=== PATIENT | female | born 1970 | race Caucasian/White ===

== ENCOUNTER 2017-08-29 18:20 | Inpatient (IN) ==
[2017-08-29] MEDS ORDERED: Ondansetron 4 MG/2 ML VIAL IVP ONE (18:23)
[2017-08-29] MEDS ORDERED: Ketorolac 15 MG/ML VIAL IVP ONE (18:23)
--- NOTE | 2017-08-29 18:28 | Emergency Department Note ---
Disposition Clinical Impression: Acute cholecystitis Disposition: Admitted As Inpatient Condition: Fair Forms: ED Satisfaction Letter, Work/School Release Time of Disposition: 19:21 Abdominal Pain HPI - General Chief Complaint: ED General Medical Stated Complaint: gallbladder Time Seen by Provider: 08/29/17 18:23 Source: patient Mode of arrival: wheelchair Limitations: no limitations Nursing Notes Reviewed: Yes Vital Signs Reviewed: Yes - History of Present Illness HPI Narrative: Patient sent from the radiology department after having an abnormal outpatient gallbladder ultrasound. She reports right upper quadrant pain, nausea, vomiting. The chest was ordered from the urgent care as an outpatient Pt Subjective Complaint: abdominal pain Onset (ago): day(s) Consistency: intermittent Location: RUQ Pain Severity: severe Pain Scale: 6 Quality: aching Radiation: RUQ Improves with: nothing Worsens with: eating Associated symptoms: Reports: nausea Treatments prior to arrival: antacids, other - Related Data Home Medications Medication Instructions Recorded Confirmed Loratadine [Claritin] 10 mg PO DAILY 08/29/17 08/29/17 Mag Hydrox/Al Hydrox/Simeth 15 ml PO Q6HR 08/29/17 08/29/17 [Maalox] Multivit with Calcium,Iron,Min 1 tab PO DAILY 08/29/17 08/29/17 [One Daily Women's] [place]-3S/Dha/Epa/Fish Oil [Fish 1 cap PO DAILY 08/29/17 08/29/17 Oil 1,000 mg Softgel] Previous Rx's Medication Instructions Recorded Dicyclomine [Bentyl] 10 mg PO QID PRN #45 capsule 08/29/17 Ondansetron ODT [Zofran ODT] 4 mg SL Q8HR PRN #21 tab.rapdis 08/29/17 Allergies Allergy/AdvReac Type Severity Reaction Status Date / Time codeine AdvReac Hallucinati Verified 08/29/17 13:02 ng All systems ED: reviewed and negative except as stated. Constitutional: Reports: as per HPI Eyes: Reports: as per HPI ENT ED: Reports: as per HPI Cardiovascular: Reports: as per HPI Respiratory: Reports: as per HPI Gastrointestinal: Reports: abdominal pain, nausea Genitourinary: Reports: as per HPI Musculoskeletal: Reports: as per HPI Integumentary: Reports: as per HPI Neurological: Reports: as per HPI Psychiatric: Reports: as per HPI Endocrine: Reports: as per HPI Hematological/Lymphatic: Reports: as per HPI Allergic/Immunologic: Reports: as per HPI Abdominal Pain PMH - Past Medical History Medical history: Reports: no medical history Female Surgical History: Reports: hysterectomy - Social History Smoking status: Never smoker Alcohol use: Reports: none Drug use: Reports: none Physical Exam - General Limitations: no limitations General appearance: alert, in no apparent distress, anxious - Head Head exam: atraumatic - Eye Eye exam: Present: normal appearance - ENT ENT exam: normal exam - Neck Neck exam: Present: normal inspection, full ROM - Chest Chest inspection: Present: normal inspection, symmetric chest wall rise - Respiratory Respiratory exam: Present: normal lung sounds bilaterally - Cardiovascular Cardiovascular exam: Present: normal rhythm, bradycardia, normal heart sounds - Abdominal Exam Abdominal exam: Present: soft, tenderness (Right upper quadrant) - Rectal Exam Rectal exam: Present: deferred - Extremities Exam Extremities exam: Present: normal inspection - Neurological Exam Neurological exam: Present: alert, oriented X3, CN II-XII intact - Psychiatric Psychiatric exam: Present: anxious - Skin Skin exam: Present: warm, dry, intact Course Course Narrative: Patient presents with right upper quadrant abdominal pain. She had an outpatient gallbladder ultrasound dated earlier today the transcribed report of which I have reviewed. Call placed to the surgeon post acute care nurse practitioner. Preoperative labs ordered - Consultations Consultation #1: Case d/w Dr. Garg, surgery post acute care nurse practitioner Vital Signs Temperature 99 F 08/29/17 18:23 Pulse Rate 78 08/29/17 18:23 Respiratory Rate 18 08/29/17 18:23 Blood Pressure 128/81 08/29/17 18:23 O2 Sat by Pulse Oximetry 98 08/29/17 18:23 Temperature 99 F 08/29/17 18:23 Pulse Rate 78 08/29/17 18:23 Respiratory Rate 18 08/29/17 18:23 Blood Pressure 128/81 08/29/17 18:23 O2 Sat by Pulse Oximetry 98 08/29/17 18:23 Oxygen Delivery Oxygen Delivery Room Air Abdominal Pain - Medical Records Medical records reviewed: Yes I reviewed the patient's medical records. - Lab Data Lab results reviewed: Yes I reviewed the patient's lab results. Result diagrams: 08/29/17 18:36 08/29/17 18:36 Lab Results 06/28/18 06/28/18 06/28/18 Range/Units 18:36 18:36 18:36 WBC 7.4 (4.3-11.1) K/mcL RBC 5.33 H (3.82-4.97) M/mcL Hgb 16.6 H (11.5-15.4) g/dL Hct 46.9 H (35.3-44.9) % MCV 88.0 (83.0-100.0) fL MCH 31.1 (28.0-33.3) pg MCHC 35.4 (31.6-35.5) g/dL RDW 11.9 (11.5-14.5) % Plt Count 295 (140-400) K/mcL MPV 9.4 (9.4-12.4) fL Immature Gran % 0.1 (0-4) % Seg Neutrophils % 88.0 % Lymphocytes % 8.6 % Monocytes % 3.0 % Eosinophils % 0.0 % Basophils % 0.3 % Neutrophils # 6.5 (1.6-8.9) K/mcL Lymphocytes # 0.6 (0.6-4.6) K/mcL Monocytes # 0.2 (0.0-1.3) K/mcL Eosinophils # 0.0 (0.0-0.6) K/mcL Basophils # 0.0 (0.0-0.2) K/mcL PT 12.2 H (9.4-12.1) Seconds INR 1.1 Sodium 138 (136-145) mEq/L Potassium 3.6 (3.5-5.1) mEq/L Chloride 99 (98-107) mEq/L Carbon Dioxide 24 (23-29) mEq/L BUN 11 (6-20) mg/dL Creatinine 0.82 (0.60-1.20) mg/dL Est GFR ( Amer) > 60 (> 60) Est GFR (Non-Af Amer) > 60 (> 60) BUN/Creatinine Ratio 13 (6-26) Glucose 144 H (70-105) mg/dL Calculated Osmolality 288 (280-300) Calcium 10.3 (8.6-10.3) mg/dL Total Bilirubin 8.4 H (0.3-1.0) mg/dL AST 498 H (13-39) Units/L ALT > 500 H (7-52) Units/L Alkaline Phosphatase 312 H (34-104) Units/L Serum Total Protein 8.6 (6.4-8.9) g/dL Albumin 5.0 (3.5-5.7) g/dL Globulin 3.6 H (2.4-3.5) g/dL Albumin/Globulin Ratio 1.4 (1.1-2.2) Amylase 44 (29-103) Units/L - Radiology Data Radiology results reviewed: Yes I reviewed the patient's radiology results. - EKG Data EKG attestation: Yes I reviewed and interpreted this EKG. EKG results narrative: Sinus bradycardia rate 55 left ventricular hypertrophy. 147 QRS 90 QT/QTc 464/ 454
[2017-08-29 18:51] LABS: Basophils % 0.3 %; Hematocrit 46.9 % (35.3-44.9); Hemoglobin 16.6 g/dL (11.5-15.4); Immature Granulocytes % 0.1 % (0-4); Lymphocytes # 0.6 K/mcL (0.6-4.6); Lymphocytes % 8.6 %; Mean Corpuscular HGB Conc 35.4 g/dL (31.6-35.5); Mean Corpuscular Hemoglobin 31.1 pg (28.0-33.3); Mean Platelet Volume 9.4 fL (9.4-12.4); Monocytes # 0.2 K/mcL (0.0-1.3); Neutrophils # 6.5 K/mcL (1.6-8.9); Platelet Count 295 K/mcL (140-400); Red Blood Count 5.33 M/mcL (3.82-4.97); Red Cell Distribution Width 11.9 % (11.5-14.5)
[2017-08-29 18:59] LABS: INR 1.1; Prothrombin Time 12.2 Seconds (9.4-12.1)
[2017-08-29 19:17] LABS: Alanine Aminotransferase > 500 Units/L (7-52); Albumin/Globulin Ratio 1.4 (1.1-2.2); Alkaline Phosphatase 312 Units/L (34-104); Amylase 44 Units/L (29-103); Aspartate Amino Transferase 498 Units/L (13-39); BUN/Creatinine Ratio 13 (6-26); Bilirubin,Total 8.4 mg/dL (0.3-1.0); Blood Urea Nitrogen 11 mg/dL (6-20); Calcium 10.3 mg/dL (8.6-10.3); Carbon Dioxide 24 mEq/L (23-29); Chloride 99 mEq/L (98-107); Globulin 3.6 g/dL (2.4-3.5); Glucose 144 mg/dL (70-105); Osmolality,Calculated 288 (280-300); Potassium 3.6 mEq/L (3.5-5.1); Sodium 138 mEq/L (136-145); Total Protein 8.6 g/dL (6.4-8.9); eGFR For African Americans > 60 (> 60); eGFR For Non-African Americans > 60 (> 60)
--- NOTE | 2017-08-29 19:29 | General Surg History&Physical ---
Date of Encounter: 08/29/17 Time of Encounter: 19:26 Assessment and Plan (1) Choledocholithiasis with acute cholecystitis Current Visit: Yes Status: Acute 46F with choledocholithiasis; non toxic NPO IVF abx pain control admit to step down unit GI consult for ERCP in AM will plan for surgery after a few days of antibiotics; The assessment and plan as outlined above was discussed with the patient and/or family members who expressed understanding and agreement. All questions were answered. History of Present Illness Chief complaint: abdominal pain HPI: Ms. Herrera is a 46 year old female otherwise healthy who presents with 3 weeks of RUQl and epigastric pain with radiation to her shoulders. The pain got progressively worse this week when she developed associated nausea and vomiting. No reports of fevers. She does report PO intolerance as she states she is barely able to tolerate water. Due to the severity of her pain and worsening symptoms, she presents to the ED for further evaluation. Her WBC is wnl, her Tbili is elevated to 8.4 as well as elevation of AST/ALT; US which was reviewed and interpreted by me in combination with radiology reads demonstrates gallbladder wall thickening, pericholecystic fluid, gallstones and a dilated common bile duct. Past Med Surg Social Fam HX - Past Medical History Medical history: no medical history - Past Surgical History Surgical History: hysterectomy - Social History Smoking Status: Never smoker Smokeless Tobacco Status: No Alcohol use: none Drug use: none - Additional Family History Additional family history: non contributory Medications and Allergies Dicyclomine [Bentyl] 10 mg PO QID PRN #45 capsule 08/29/17 [Rx] Loratadine [Claritin] 10 mg PO DAILY 08/29/17 [History] Mag Hydrox/Al Hydrox/Simeth [Maalox] 15 ml PO Q6HR 08/29/17 [History] Multivit with Calcium,Iron,Min [One Daily Women's] 1 tab PO DAILY 08/29/17 [ History] [place]-3S/Dha/Epa/Fish Oil [Fish Oil 1,000 mg Softgel] 1 cap PO DAILY 08/29/17 [ History] Ondansetron ODT [Zofran ODT] 4 mg SL Q8HR PRN #21 tab.rapdis 08/29/17 [Rx] 3 Allergy/AdvReac Type Severity Reaction Status Date / Time codeine AdvReac Hallucinati Verified 08/29/17 13:02 ng Review of Systems All systems PM: The remainder of the systems were reviewed and are negative General Surgery Exam Initial Vital Signs Temp Pulse Resp BP Pulse Ox 99 F 78 18 128/81 98 08/29/17 18:23 08/29/17 18:23 08/29/17 18:23 08/29/17 18:23 08/29/17 18:23 - General physical appearance other (mild distress) - Eyes other (scleral icterus) - ENT normal mucosa, normocephalic - Neck no lymphadectomy - Respiratory normal expansion, normal respiratory effort - Cardiovascular Cardiovascular exam: Present: RRR - Abdomen Abdomen general surgery: Present: soft, tender Abdominal Tenderness: Present: epigastic, RUQ ((+)vazquez's sign) - Integumentary Integumentary general surgery: Present: warm and dry, other (jaundice) - Neurologic Present: CN 2-12 grossly intact - Musculoskeletal Present: normal posture - Psychiatric Psychiatric general surgery: Present: A&Ox3 Results - Labs 08/29/17 18:36 08/29/17 18:36 Abnormal lab results RBC 5.33 M/mcL (3.82-4.97) H 08/29/17 18:36 Hgb 16.6 g/dL (11.5-15.4) H 08/29/17 18:36 Hct 46.9 % (35.3-44.9) H 08/29/17 18:36 PT 12.2 Seconds (9.4-12.1) H 08/29/17 18:36 Glucose 144 mg/dL (70-105) H 08/29/17 18:36 Total Bilirubin 8.4 mg/dL (0.3-1.0) H 08/29/17 18:36 AST 498 Units/L (13-39) H 08/29/17 18:36 ALT > 500 Units/L (7-52) H 08/29/17 18:36 Alkaline Phosphatase 312 Units/L (34-104) H 08/29/17 18:36 Globulin 3.6 g/dL (2.4-3.5) H 08/29/17 18:36 Diabetes panel 08/29/17 08/29/17 08/29/17 Range/Units 18:36 18:36 18:36 WBC 7.4 (4.3-11.1) K/mcL RBC 5.33 H (3.82-4.97) M/mcL Hgb 16.6 H (11.5-15.4) g/dL Hct 46.9 H (35.3-44.9) % MCV 88.0 (83.0-100.0) fL MCH 31.1 (28.0-33.3) pg MCHC 35.4 (31.6-35.5) g/dL RDW 11.9 (11.5-14.5) % Plt Count 295 (140-400) K/mcL MPV 9.4 (9.4-12.4) fL Immature Gran % 0.1 (0-4) % Seg Neutrophils % 88.0 % Lymphocytes % 8.6 % Monocytes % 3.0 % Eosinophils % 0.0 % Basophils % 0.3 % Neutrophils # 6.5 (1.6-8.9) K/mcL Lymphocytes # 0.6 (0.6-4.6) K/mcL Monocytes # 0.2 (0.0-1.3) K/mcL Eosinophils # 0.0 (0.0-0.6) K/mcL Basophils # 0.0 (0.0-0.2) K/mcL PT 12.2 H (9.4-12.1) Seconds INR 1.1 Sodium 138 (136-145) mEq/L Potassium 3.6 (3.5-5.1) mEq/L Chloride 99 (98-107) mEq/L Carbon Dioxide 24 (23-29) mEq/L BUN 11 (6-20) mg/dL Creatinine 0.82 (0.60-1.20) mg/dL Est GFR ( Amer) > 60 (> 60) Est GFR (Non-Af Amer) > 60 (> 60) BUN/Creatinine Ratio 13 (6-26) Glucose 144 H (70-105) mg/dL Calculated Osmolality 288 (280-300) Calcium 10.3 (8.6-10.3) mg/dL Total Bilirubin 8.4 H (0.3-1.0) mg/dL AST 498 H (13-39) Units/L ALT > 500 H (7-52) Units/L Alkaline Phosphatase 312 H (34-104) Units/L Serum Total Protein 8.6 (6.4-8.9) g/dL Albumin 5.0 (3.5-5.7) g/dL Globulin 3.6 H (2.4-3.5) g/dL Albumin/Globulin Ratio 1.4 (1.1-2.2) Amylase 44 (29-103) Units/L Calcium panel 08/29/17 Range/Units 18:36 Calcium 10.3 (8.6-10.3) mg/dL Albumin 5.0 (3.5-5.7) g/dL Pituitary panel 08/29/17 Range/Units 18:36 Sodium 138 (136-145) mEq/L Potassium 3.6 (3.5-5.1) mEq/L Chloride 99 (98-107) mEq/L Carbon Dioxide 24 (23-29) mEq/L BUN 11 (6-20) mg/dL Creatinine 0.82 (0.60-1.20) mg/dL Glucose 144 H (70-105) mg/dL Calcium 10.3 (8.6-10.3) mg/dL Adrenal panel 08/29/17 Range/Units 18:36 Sodium 138 (136-145) mEq/L Potassium 3.6 (3.5-5.1) mEq/L Chloride 99 (98-107) mEq/L Carbon Dioxide 24 (23-29) mEq/L BUN 11 (6-20) mg/dL Creatinine 0.82 (0.60-1.20) mg/dL Glucose 144 H (70-105) mg/dL Calcium 10.3 (8.6-10.3) mg/dL Total Bilirubin 8.4 H (0.3-1.0) mg/dL AST 498 H (13-39) Units/L ALT > 500 H (7-52) Units/L Alkaline Phosphatase 312 H (34-104) Units/L Albumin 5.0 (3.5-5.7) g/dL All other labs normal. - Imaging US - abdomen: report reviewed, image reviewed
[2017-08-29] MEDS ORDERED: Ondansetron ODT 4 MG TAB.RAPDIS SL PRN (19:36)
[2017-08-29] MEDS ORDERED: OXYCODONE Oral CONC 10 MG/0.5 ML ORAL.SYG SL PRN (19:36)
[2017-08-29] MEDS ORDERED: Ketorolac 15 MG/ML VIAL IM PRN (19:40)
[2017-08-29] MEDS: 0.9 % Sodium Chloride 1,000 ML IVC SCH ×2 (20:23→21:21)
[2017-08-29] MEDS: D5% in 0.9% NACL 1,000 ML IVC SCH (22:27)
[2017-08-29] MEDS: Piperacillin/Tazobactam 3.375 GM in 0.9 % Sodium Chloride Mini Bag 100 ML IVPB SCH (23:24)
[2017-08-29] MEDS: Ondansetron 4 MG/2 ML VIAL IVP PRN (23:25)
[2017-08-30] MEDS: Ketorolac 15 MG/ML VIAL IVP PRN ×4 (01:23→21:04)
[2017-08-30] MEDS: *HR* Enoxaparin 40 MG/0.4 ML SYRINGE SQ SCH (04:27)
[2017-08-30] MEDS: D5% in 0.9% NACL 1,000 ML IVC SCH ×2 (04:27→05:43)
[2017-08-30 05:42] LABS: Basophils % 0.1 %; Eosinophils % 0.4 %; Immature Granulocytes % 0.3 % (0-4); Lymphocytes # 1.2 K/mcL (0.6-4.6); Lymphocytes % 16.7 %; Mean Corpuscular HGB Conc 35.1 g/dL (31.6-35.5); Mean Corpuscular Hemoglobin 31.4 pg (28.0-33.3); Mean Corpuscular Volume 89.4 fL (83.0-100.0); Mean Platelet Volume 9.7 fL (9.4-12.4); Monocytes # 0.9 K/mcL (0.0-1.3); Neutrophils # 5.2 K/mcL (1.6-8.9); Platelet Count 210 K/mcL (140-400); Red Blood Count 4.36 M/mcL (3.82-4.97); Red Cell Distribution Width 11.9 % (11.5-14.5); Segmented Neutrophils % 70.5 %
[2017-08-30 05:44] LABS: Hemoglobin 13.7 g/dL (11.5-15.4)
[2017-08-30] MEDS: Ondansetron 4 MG/2 ML VIAL IVP PRN ×3 (05:44→21:05)
[2017-08-30] MEDS: Piperacillin/Tazobactam 3.375 GM in 0.9 % Sodium Chloride Mini Bag 100 ML IVPB SCH ×2 (07:29→17:13)
--- NOTE | 2017-08-30 09:19 | General Surgery Progress Note ---
Date of Encounter: 08/30/17 Time of Encounter: 09:18 - Assessment and Plan (1) Choledocholithiasis with acute cholecystitis Current Visit: Yes Status: Acute 46F with choledocholithiasis, acute cholecystitis; plan for ERCP today if unable to get done to day, will transfer to OSH cont IV abx keep NPO may need TPN Subjective Patient reports: no new complaints, still having pain, afebrile Objective Vital Signs - Last 8 Hours Temp Pulse Resp BP Pulse Ox 08/30/17 07:30 99 F 65 16 152/76 98 08/30/17 03:45 98.6 F 49 16 143/81 98 Intake and Output 08/29/17 08/30/17 08/30/17 23:59 07:59 15:59 Intake Total 1999 1100 / 1100 Output Total 0 / 0 0 / 0 Balance 1999 1100 / 1100 Intake: IV Fluids 1999 1100 / 1100 0.9 % Sodium Chloride 1,000 ML 1999 @ 999 mls/hr IVC .Q1H1M [facility] Rx# :[id number] D5% And 0.9% Nacl 1000 Ml 1,000 1000 / 1000 ML @ 125 mls/hr IVC .Q8H [facility] Rx#:[id number] Zosyn 3.375 GM In 0.9 % Sodium 100 / 100 Chloride (Mini-Bag +) 100 ML @ 25 mls/hr IVPB Q8HR [facility] Rx#: [id number] Oral 0 / 0 0 / 0 Output: Urine 0 / 0 0 / 0 Other: Weight 68 kg Blood Glucose* 145 - General physical appearance no distress, jaundice - Eyes other (scleral icterus) - Respiratory normal expansion, normal respiratory effort - Cardiovascular Cardiovascular exam: Present: RRR - Abdomen Abdomen: Present: soft, tender Abdominal Tenderness: epigastic, RUQ - Neurologic CN 2-12 grossly intact - Psychiatric oriented to time, oriented to person, oriented to place - Labs 08/30/17 05:12 08/29/17 18:36 - VTE Documentation of Mechanical Device: Intermittent pneumatic compression device Consult Discharge Plan - Plan Referrals: Luis Horn DO [Primary Care Provider] -
--- NOTE | 2017-08-30 11:20 | Gastroenterology Consult Note ---
Date of Encounter: 08/30/17 Time of Encounter: 09:15 - Assessment and plan (1) Choledocholithiasis with acute cholecystitis Current Visit: Yes Status: Acute Assessment and plan: Pt presents with nausea, abdominal pain, elevated LFTs and jaundice. US shows stone in the CBD will proceed with ERCP today. Risks and benefits including risk of infection, pancreatitis and bleeding explained and pt and verbalize understanding. - Time Spent With Patient Total time spent is greater than 50% in coordination of care (as documented) at patient's floor/unit and/or counseling patient: GI History of Present Illness - Data of Consult Patient: new to practice Consult date: 08/30/17 Requesting Physician: Adolfo Garg MD - Consult Narrative Reason for consult: choledocholithiasis History of present illness: Ms. Herrera is a 46 year old female otherwise healthy who presents with 3 weeks of RUQ and epigastric pain with radiation to her shoulders. Pain has been much worse the past week and she has been unable to keep liquids down due to nausea and vomiting. She reports low grade fever. Her WBC is wnl, her Tbili is elevated to 8.4, AST 98, ALT >500. US gallbladder showed Distended gallbladder with numerous shadowing stones and sludge present as well as trace pericholecystic fluid. The gallbladder wall is also thickened an sonographic Link sign is reportedly positive. Stone noted at the level of the gallbladder neck and the common bile duct is dilated at 1.3 cm. Past Med Surg Social Fam HX - Past Medical History Medical history: no medical history Psychiatric history: no psych history - Past Surgical History Surgical History: hysterectomy - Social History Smoking Status: Never smoker Smokeless Tobacco Status: No Alcohol use: none Drug use: none Review of Systems: GI: as per PAUMA GENERAL: low grade fever and chills EYES: yellow discoloration ENT: denies pain with swallowing or difficulty swallowing CARDIO: denies chest pain, palpitations RESP: No Shortness of breath with exertion : denies change in color of urine NEURO: denies any weakness HEME: Denies any bruising MS: denies joint pain, joint swelling or back pain. DERM: denies rash or itching PSYCH: Denies history of anxiety or depression - Constitutional Vitals: Temp Pulse Resp BP Pulse Ox 99 F 65 16 152/76 98 08/30/17 07:30 08/30/17 07:30 08/30/17 07:30 08/30/17 07:30 08/30/17 07:30 Exam: CONSTITUTIONAL:~alert, no acute distress.~HEAD:~normocephalic.~EYES:~jaundice.~ NECK:~no obvious swelling.~HEART:~regular rate and rhythm, no murmurs.~LUNGS:~ bilateral good air entry.~ABDOMEN:~non distended, soft, tender, no masses palpable, no organomegaly.~RECTAL EXAM:~Deferred.~EXTREMITIES:~no clubbing, cyanosis or edema.~SKIN:~no stigmata of chronic liver disease.~NEUROLOGIC:~no obvious focal defect.~~~~ Results - Labs CBC & Chem 7: 08/30/17 05:12 08/29/17 18:36 Labs: Last Result Calcium 10.3 mg/dL (8.6-10.3) 08/29/17 18:36 Entire Visit Hgb 13.7 g/dL (11.5-15.4) D 08/30/17 05:12 Hct 39.0 % (35.3-44.9) 08/30/17 05:12 PT 12.2 Seconds (9.4-12.1) H 08/29/17 18:36 Total Bilirubin 8.4 mg/dL (0.3-1.0) H 08/29/17 18:36 AST 498 Units/L (13-39) H 08/29/17 18:36 ALT > 500 Units/L (7-52) H 08/29/17 18:36 Amylase 44 Units/L (29-103) 08/29/17 18:36 - ABG ABG results: PT/INR, D-dimer PT 12.2 Seconds (9.4-12.1) H 08/29/17 18:36 Consult Discharge Plan - Plan Referrals: Luis Horn DO [Primary Care Provider] -
--- NOTE | 2017-08-30 13:39 | Anesthesia Evaluation PreOp ---
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: Denies Any Significant HX Other Medical History: Denies Any Significant HX Anesthesia History: No Prior Anesthetic Complications, Past Anesthesia ( hysterectomy) Alcohol Use: none Drug use: none Medications and Allergies Dicyclomine [Bentyl] 10 mg PO QID PRN #45 capsule 08/29/17 [Rx] Loratadine [Claritin] 10 mg PO DAILY 08/29/17 [History] Mag Hydrox/Al Hydrox/Simeth [Maalox] 15 ml PO Q6HR 08/29/17 [History] Multivit with Calcium,Iron,Min [One Daily Women's] 1 tab PO DAILY 08/29/17 [ History] [place]-3S/Dha/Epa/Fish Oil [Fish Oil 1,000 mg Softgel] 1 cap PO DAILY 08/29/17 [ History] Ondansetron ODT [Zofran ODT] 4 mg SL Q8HR PRN #21 tab.rapdis 08/29/17 [Rx] 3 Allergy/AdvReac Type Severity Reaction Status Date / Time codeine AdvReac Hallucinati Verified 08/29/17 13:02 ng - Meds/Allergy Pre-op Review Medications Reviewed: Yes Allergies Reviewed: Yes Beta Blockers on Current Med List: No Anesthesia Results - Labs 08/30/17 05:12 08/29/17 18:36 Anesthesia Exam Vital Signs/O2 Sat/Glucose, Most Recent Temp Pulse Resp BP Pulse Ox 98.6 F 50 16 143/72 100 08/30/17 11:42 08/30/17 11:42 08/30/17 11:42 08/30/17 11:42 08/30/17 11:42 Blood Glucose* 125 Height: 5'2''/1.57m Weight: 149 lbs/68 kg NPO (# of Hours): 8 Pain Scale: 2 (abdomen) Pain Scale Used: Numeric (1 - 10) - HEENT Pupil (Motor): EOMI Mallampati: II Teeth: Normal Oral Opening: Greater than 3 - DRAGLINE OPERATOR HELPER LOC: Oriented DRAGLINE OPERATOR HELPER Motor: Normal RUE, Normal LUE, Normal RLE, Normal LLE, Normal Face DRAGLINE OPERATOR HELPER Sensory: Normal: RUE, LUE, RLE, LLE, Face - Cardiac Rhythm: Regular Murmur: None - Pulmonary Breath Sounds: bilateral Clear Respiratory Effort: Symmetrical Anesthesia Assess/Plan ASA Score: 2 Modified [place]ble Scale for Level of Consciousness: Cooperative, oriented, and tranquil Anesthetic Plan: General Monitoring Plan: Standard Monitors Recovery Plan: PACU
[2017-08-30] MEDS ORDERED: *HR* Succinylcholine 200 MG/10 ML VIAL IVP ONE (13:53)
[2017-08-30] MEDS ORDERED: *HR* Propofol 200 MG/20 ML VIAL IVP ONE (13:53)
[2017-08-30] MEDS ORDERED: Lidocaine -MPF 4% 5 ML AMPUL ONE (13:53)
[2017-08-30] MEDS ORDERED: Lidocaine -MPF 2% 2 ML VIAL ONE (13:53)
[2017-08-30] MEDS ORDERED: Ondansetron 4 MG/2 ML VIAL ONE (13:53)
[2017-08-30] MEDS ORDERED: Dexamethasone 4 MG/ML VIAL ONE (13:53)
[2017-08-30] MEDS ORDERED: *HR* FentaNYL (PF) 100 MCG/2 ML VIAL ONE (13:53)
[2017-08-30] MEDS ORDERED: Ondansetron 4 MG/2 ML VIAL IVP ONE (14:55)
[2017-08-30] MEDS ORDERED: *HR* FentaNYL (PF) 100 MCG/2 ML VIAL IVP PRN (14:55)
[2017-08-30] MEDS ORDERED: *HR* Promethazine 25 MG/ML VIAL IVP PRN (14:55)
[2017-08-30] MEDS ORDERED: Indomethacin 50 MG SUPP.RECT RC ONE (15:26)
--- NOTE | 2017-08-30 15:49 | Electrocardiograph Report ---
[address] [address] Test Date: 2017-08-29 Pat Name: Salima Herrera Department: 103 Room: 3A45 Gender: F Charge Out Clerk: MSC : [id number] Requested By: Russell Ferrell Order Number: [id number] Reading MD: Masood Wylie Measurements Intervals [place] Rate: 55 P: 56 KS: 147 QRS: 58 QRSD: 90 T: 34 QT: 464 QTc: 454 Interpretive Statements SINUS BRADYCARDIA MINIMAL VOLTAGE CRITERIA FOR LVH, CONSIDER NORMAL VARIANT Electronically Signed On 08-30-2017 15:48:03 EDT by Masood Wylie
--- NOTE | 2017-08-30 16:15 | Anesthesia Evaluation Post Op ---
Date of Encounter: 08/30/17 Time of Encounter: 16:09 - Vital Signs Vital Signs: vss - Lungs Lungs: Clear Ascult./Percussion - Airway Airway: Non-obstructed - Cardiovascular Baseline Rhythm - Mental Status Mental Status: Alert & Oriented, Answers Appropriately - Pain Pain Scale used: Camilo (Faces) - Nausea Vomiting Nausea Vomiting: Not Present - Hydration Hydration: Ice chips - Discharge PostOp Status: Transfer Patient to floor
[2017-08-31] MEDS: Piperacillin/Tazobactam 3.375 GM in 0.9 % Sodium Chloride Mini Bag 100 ML IVPB SCH ×3 (00:34→16:49)
[2017-08-31] MEDS: D5% in 0.9% NACL 1,000 ML IVC SCH ×3 (04:01→12:20)
[2017-08-31 04:45] LABS: Basophils % 0.2 %; Eosinophils % 0.4 %; Hematocrit 34.9 % (35.3-44.9); Immature Granulocytes % 0.2 % (0-4); Lymphocytes # 1.3 K/mcL (0.6-4.6); Lymphocytes % 25.5 %; Mean Corpuscular HGB Conc 34.7 g/dL (31.6-35.5); Mean Corpuscular Hemoglobin 31.3 pg (28.0-33.3); Mean Corpuscular Volume 90.2 fL (83.0-100.0); Mean Platelet Volume 9.9 fL (9.4-12.4); Monocytes # 0.5 K/mcL (0.0-1.3); Monocytes % 10.5 %; Neutrophils # 3.2 K/mcL (1.6-8.9); Platelet Count 165 K/mcL (140-400); Red Blood Count 3.87 M/mcL (3.82-4.97); Segmented Neutrophils % 63.2 %
[2017-08-31 04:48] LABS: Hemoglobin 12.1 g/dL (11.5-15.4)
[2017-08-31 04:57] LABS: Alanine Aminotransferase 391 Units/L (7-52); Albumin 3.3 g/dL (3.5-5.7); Albumin/Globulin Ratio 1.4 (1.1-2.2); Alkaline Phosphatase 202 Units/L (34-104); Amylase 33 Units/L (29-103); Aspartate Amino Transferase 117 Units/L (13-39); BUN/Creatinine Ratio 12 (6-26); Bilirubin,Direct 4.6 mg/dL (0.0-0.2); Bilirubin,Indirect 1.5 mg/dL (0.0-1.2); Bilirubin,Total 6.1 mg/dL (0.3-1.0); Blood Urea Nitrogen 8 mg/dL (6-20); Calcium 8.6 mg/dL (8.6-10.3); Carbon Dioxide 23 mEq/L (23-29); Chloride 110 mEq/L (98-107); Globulin 2.4 g/dL (2.4-3.5); Glucose 151 mg/dL (70-105); Lipase 44 Units/L (11-82); Osmolality,Calculated 289 (280-300); Potassium 3.4 mEq/L (3.5-5.1); Sodium 139 mEq/L (136-145); Total Protein 5.7 g/dL (6.4-8.9); eGFR For African Americans > 60 (> 60); eGFR For Non-African Americans > 60 (> 60)
[2017-08-31] MEDS: *HR* Enoxaparin 40 MG/0.4 ML SYRINGE SQ SCH (07:51)
--- NOTE | 2017-08-31 15:06 | General Surgery Progress Note ---
Date of Encounter: 08/31/17 Time of Encounter: 15:04 - Assessment and Plan (1) Choledocholithiasis with acute cholecystitis Current Visit: Yes Status: Acute sp ERCP, stone removal, sphincterotomy and stent placement pain is much improved tolerated fulls continue abx ok adv to reg low fat diet prn pain control lft's trending down, discussed with patient may take several days amylase and lipase normal today, no post ercp pancreatitis OOB ambulate, ok shower (2) Elevated LFTs Current Visit: Yes Status: Acute are trending down, follow Subjective Patient reports: feels better, still having pain, pain is less, tolerating liquids well, voiding w/o difficulty, flatus, afebrile Objective Vital Signs - Last 8 Hours Temp Pulse Resp BP Pulse Ox 08/31/17 11:27 98.2 F 79 14 99/65 94 Intake and Output 08/30/17 08/31/17 08/31/17 23:59 07:59 15:59 Intake Total 0 / 0 1260 / 1260 1340 / 1340 Output Total 500 / 500 300 / 300 Balance 0 / 0 760 / 760 1040 / 1040 Intake: IV Fluids 1200 / 1200 1100 / 1100 D5% And 0.9% Nacl 1000 Ml 1,000 1000 / 1000 1000 / 1000 ML @ 125 mls/hr IVC .Q8H [facility] Rx#:[id number] Zosyn 3.375 GM In 0.9 % Sodium 200 / 200 100 / 100 Chloride (Mini-Bag +) 100 ML @ 25 mls/hr IVPB Q8HR [facility] Rx#: [id number] Oral 0 / 0 60 / 60 240 / 240 Output: Urine 500 / 500 300 / 300 Other: Meal Lunch Percent of Meal Consumed 75% # Voids 1 Weight 67.8 kg Blood Glucose* 153 108 Patient Weight 08/31/17 23:59 Weight 67.8 kg - General physical appearance well developed, well nourished, no distress - Eyes PERRL, normal ocular movement, icteric - ENT normal mucosa, normocephalic - Neck Neck exam: trachea midline - Respiratory normal expansion, normal respiratory effort - Cardiovascular Cardiovascular exam: Present: RRR - Abdomen Abdomen: Present: soft, tender. Absent: guarding, rebound Abdominal Tenderness: RUQ - Integumentary no rash, no growths - Musculoskeletal normal posture - Psychiatric oriented to time, oriented to person, oriented to place, speech is normal, memory intact - Labs 08/31/17 04:20 08/31/17 04:20 Short CBC 08/31/17 Range/Units 04:20 WBC 5.1 (4.3-11.1) K/mcL Hgb 12.1 D (11.5-15.4) g/dL Hct 34.9 L (35.3-44.9) % Plt Count 165 (140-400) K/mcL Neutrophils # 3.2 (1.6-8.9) K/mcL BMP 08/31/17 Range/Units 04:20 Sodium 139 (136-145) mEq/L Potassium 3.4 L (3.5-5.1) mEq/L Chloride 110 H (98-107) mEq/L Carbon Dioxide 23 (23-29) mEq/L BUN 8 (6-20) mg/dL Creatinine 0.67 (0.60-1.20) mg/dL Glucose 151 H (70-105) mg/dL Calcium 8.6 (8.6-10.3) mg/dL Liver Function 08/31/17 Range/Units 04:20 Total Bilirubin 6.1 H (0.3-1.0) mg/dL Direct Bilirubin 4.6 H (0.0-0.2) mg/dL AST 117 H (13-39) Units/L ALT 391 H (7-52) Units/L Alkaline Phosphatase 202 H (34-104) Units/L Albumin 3.3 L (3.5-5.7) g/dL Vital Signs Temp Pulse Resp BP Pulse Ox 08/31/17 11:27 98.2 F 79 14 99/65 94 08/31/17 07:02 97.6 F 62 14 102/63 98 08/31/17 03:20 97.9 F 55 16 112/69 97 08/30/17 19:06 98 F 65 16 106/71 97 08/30/17 17:45 98.3 F 51 16 113/66 97 08/30/17 17:15 98.1 F 50 18 126/77 97 08/30/17 16:45 98.0 F 51 18 128/82 97 08/30/17 16:15 98.4 F 57 16 124/76 98 08/30/17 16:05 71 16 114/74 97 08/30/17 15:55 75 16 129/75 94 08/30/17 15:45 98.8 F 93 12 114/77 98 Intake and Output 08/30/17 08/31/17 08/31/17 23:59 07:59 15:59 Intake Total 0 / 0 1260 / 1260 1340 / 1340 Output Total 500 / 500 300 / 300 Balance 0 / 0 760 / 760 1040 / 1040 Intake: IV Fluids 1200 / 1200 1100 / 1100 D5% And 0.9% Nacl 1000 Ml 1,000 1000 / 1000 1000 / 1000 ML @ 125 mls/hr IVC .Q8H [facility] Rx#:[id number] Zosyn 3.375 GM In 0.9 % Sodium 200 / 200 100 / 100 Chloride (Mini-Bag +) 100 ML @ 25 mls/hr IVPB Q8HR [facility] Rx#: [id number] Oral 0 / 0 60 / 60 240 / 240 Output: Urine 500 / 500 300 / 300 Other: Meal Lunch Percent of Meal Consumed 75% # Voids 1 Weight 67.8 kg Blood Glucose* 153 108 Patient Weight 08/31/17 23:59 Weight 67.8 kg - VTE Documentation of Mechanical Device: Intermittent pneumatic compression device Consult Discharge Plan - Plan Referrals: Luis Horn DO [Primary Care Provider] -
[2017-08-31] MEDS: D5% in 0.45% NACL w KCl 20 MEQ/1,000 ML MLS IVC SCH (16:51)
[2017-08-31] MEDS: Ondansetron 4 MG/2 ML VIAL IVP PRN (21:40)
[2017-08-31] MEDS: Ketorolac 15 MG/ML VIAL IVP PRN (21:40)
[2017-09-01] MEDS: Piperacillin/Tazobactam 3.375 GM in 0.9 % Sodium Chloride Mini Bag 100 ML IVPB SCH ×4 (04:24→23:46)
[2017-09-01] MEDS: *HR* Enoxaparin 40 MG/0.4 ML SYRINGE SQ SCH (05:33)
[2017-09-01 05:45] LABS: Alanine Aminotransferase 274 Units/L (7-52); Albumin 3.2 g/dL (3.5-5.7); Albumin/Globulin Ratio 1.5 (1.1-2.2); Alkaline Phosphatase 188 Units/L (34-104); Aspartate Amino Transferase 66 Units/L (13-39); BUN/Creatinine Ratio 13 (6-26); Bilirubin,Direct 1.6 mg/dL (0.0-0.2); Bilirubin,Indirect 0.9 mg/dL (0.0-1.2); Bilirubin,Total 2.5 mg/dL (0.3-1.0); Blood Urea Nitrogen 8 mg/dL (6-20); Calcium 8.6 mg/dL (8.6-10.3); Carbon Dioxide 24 mEq/L (23-29); Chloride 111 mEq/L (98-107); Globulin 2.2 g/dL (2.4-3.5); Glucose 96 mg/dL (70-105); Osmolality,Calculated 284 (280-300); Potassium 3.9 mEq/L (3.5-5.1); Sodium 138 mEq/L (136-145); Total Protein 5.4 g/dL (6.4-8.9); eGFR For African Americans > 60 (> 60); eGFR For Non-African Americans > 60 (> 60)
[2017-09-01] MEDS: D5% in 0.45% NACL w KCl 20 MEQ/1,000 ML MLS IVC SCH (09:20)
--- NOTE | 2017-09-01 11:48 | General Surgery Progress Note ---
Date of Encounter: 09/01/17 Time of Encounter: 11:47 - Assessment and Plan (1) Choledocholithiasis with acute cholecystitis Current Visit: Yes Status: Acute sp ERCP, stone removal, sphincterotomy and stent placement pain is much improved tolerated regular, low fat diet continue abx prn pain control lft's trending down, Tbili 2.5 today OOB ambulate, ok shower (2) Elevated LFTs Current Visit: Yes Status: Acute are trending down, follow Subjective Patient reports: feels better, pain is less, tolerating a regular diet, flatus, no bowel movement, afebrile Objective Vital Signs - Last 8 Hours Temp Pulse Resp BP Pulse Ox 09/01/17 10:59 98.5 F 50 14 121/76 98 09/01/17 07:09 98.2 F 51 14 115/76 96 09/01/17 03:50 98.0 F 50 14 131/76 97 Intake and Output 08/31/17 09/01/17 09/01/17 23:59 07:59 15:59 Intake Total 700 / 700 360 / 360 1480 / 1480 Output Total 400 / 400 300 / 300 400 / 400 Balance 300 / 300 60 / 60 1080 / 1080 Intake: IV Fluids 100 / 100 1000 / 1000 KCl 20mEq IN D5%-0.45 NACL 20 1000 / 1000 meq In 1,000 ml @ 60 mls/hr IVC .[id number] [facility] Rx#:[id number] Zosyn 3.375 GM In 0.9 % Sodium 100 / 100 Chloride (Mini-Bag +) 100 ML @ 25 mls/hr IVPB Q8HR [facility] Rx#: [id number] Oral 600 / 600 360 / 360 480 / 480 Output: Urine 400 / 400 300 / 300 400 / 400 Other: Meal Dinner Breakfast Percent of Meal Consumed 75% 50% # Voids 1 Weight 68.1 kg Patient Weight 09/01/17 23:59 Weight 68.1 kg - General physical appearance well developed, well nourished, no distress - Eyes PERRL, normal ocular movement - ENT normal mucosa, normocephalic - Neck Neck exam: trachea midline - Respiratory normal expansion, clear to auscultation - Cardiovascular Cardiovascular exam: Present: RRR - Abdomen Abdomen: Present: bowel sounds present, soft, tender (significantly less tender today). Absent: distended, guarding, rebound Abdominal Tenderness: epigastic - Integumentary no rash, no growths - Neurologic CN 2-12 grossly intact - Musculoskeletal normal posture - Psychiatric oriented to time, oriented to person, oriented to place, speech is normal, memory intact - Labs 08/31/17 04:20 09/01/17 04:27 BMP 09/01/17 Range/Units 04:27 Sodium 138 (136-145) mEq/L Potassium 3.9 (3.5-5.1) mEq/L Chloride 111 H (98-107) mEq/L Carbon Dioxide 24 (23-29) mEq/L BUN 8 (6-20) mg/dL Creatinine 0.62 (0.60-1.20) mg/dL Glucose 96 (70-105) mg/dL Calcium 8.6 (8.6-10.3) mg/dL Liver Function 09/01/17 Range/Units 04:27 Total Bilirubin 2.5 H (0.3-1.0) mg/dL Direct Bilirubin 1.6 H (0.0-0.2) mg/dL AST 66 H (13-39) Units/L ALT 274 H (7-52) Units/L Alkaline Phosphatase 188 H (34-104) Units/L Albumin 3.2 L (3.5-5.7) g/dL Vital Signs Temp Pulse Resp BP Pulse Ox 09/01/17 10:59 98.5 F 50 14 121/76 98 09/01/17 07:09 98.2 F 51 14 115/76 96 09/01/17 03:50 98.0 F 50 14 131/76 97 08/31/17 19:46 98.9 F 52 14 106/64 96 08/31/17 16:23 98.1 F 57 14 101/64 97 Intake and Output 08/31/17 09/01/17 09/01/17 23:59 07:59 15:59 Intake Total 700 / 700 360 / 360 1480 / 1480 Output Total 400 / 400 300 / 300 400 / 400 Balance 300 / 300 60 / 60 1080 / 1080 Intake: IV Fluids 100 / 100 1000 / 1000 KCl 20mEq IN D5%-0.45 NACL 20 1000 / 1000 meq In 1,000 ml @ 60 mls/hr IVC .[id number] [facility] Rx#:[id number] Zosyn 3.375 GM In 0.9 % Sodium 100 / 100 Chloride (Mini-Bag +) 100 ML @ 25 mls/hr IVPB Q8HR [facility] Rx#: [id number] Oral 600 / 600 360 / 360 480 / 480 Output: Urine 400 / 400 300 / 300 400 / 400 Other: Meal Dinner Breakfast Percent of Meal Consumed 75% 50% # Voids 1 Weight 68.1 kg Patient Weight 09/01/17 23:59 Weight 68.1 kg - VTE Documentation of Mechanical Device: Intermittent pneumatic compression device Consult Discharge Plan - Plan Referrals: Luis Horn DO [Primary Care Provider] -
[2017-09-02] MEDS: D5% in 0.45% NACL w KCl 20 MEQ/1,000 ML MLS IVC SCH (02:08)
[2017-09-02 04:08] LABS: Basophils % 0.5 %; Eosinophils # 0.2 K/mcL (0.0-0.6); Eosinophils % 5.3 %; Hematocrit 34.5 % (35.3-44.9); Hemoglobin 11.7 g/dL (11.5-15.4); Immature Granulocytes % 0.2 % (0-4); Lymphocytes # 1.5 K/mcL (0.6-4.6); Lymphocytes % 34.8 %; Mean Corpuscular HGB Conc 33.9 g/dL (31.6-35.5); Mean Corpuscular Hemoglobin 31.2 pg (28.0-33.3); Mean Platelet Volume 10.2 fL (9.4-12.4); Monocytes # 0.4 K/mcL (0.0-1.3); Neutrophils # 2.2 K/mcL (1.6-8.9); Platelet Count 176 K/mcL (140-400); Red Blood Count 3.75 M/mcL (3.82-4.97); Red Cell Distribution Width 12.3 % (11.5-14.5); Segmented Neutrophils % 50.2 %
[2017-09-02 04:28] LABS: BUN/Creatinine Ratio 10 (6-26); Blood Urea Nitrogen 6 mg/dL (6-20); Carbon Dioxide 24 mEq/L (23-29); Chloride 109 mEq/L (98-107); Glucose 103 mg/dL (70-105); Osmolality,Calculated 286 (280-300); Potassium 3.9 mEq/L (3.5-5.1); Sodium 139 mEq/L (136-145); eGFR For African Americans > 60 (> 60); eGFR For Non-African Americans > 60 (> 60)
[2017-09-02 04:29] LABS: Alanine Aminotransferase 230 Units/L (7-52); Albumin 3.4 g/dL (3.5-5.7); Albumin/Globulin Ratio 1.5 (1.1-2.2); Alkaline Phosphatase 168 Units/L (34-104); Aspartate Amino Transferase 54 Units/L (13-39); Bilirubin,Direct 1.1 mg/dL (0.0-0.2); Bilirubin,Indirect 1.1 mg/dL (0.0-1.2); Bilirubin,Total 2.2 mg/dL (0.3-1.0); Calcium 8.6 mg/dL (8.6-10.3); Globulin 2.3 g/dL (2.4-3.5); Total Protein 5.7 g/dL (6.4-8.9)
[2017-09-02] MEDS: *HR* Enoxaparin 40 MG/0.4 ML SYRINGE SQ SCH (05:50)
[2017-09-02] MEDS: Piperacillin/Tazobactam 3.375 GM in 0.9 % Sodium Chloride Mini Bag 100 ML IVPB SCH (07:24)
[2017-09-02 07:29] VITALS: BP 132/81
--- NOTE | 2017-09-02 07:44 | Discharge Summary ---
Date of Encounter: 09/02/17 Time of Encounter: 07:44 - Discharge Diagnosis (1) Choledocholithiasis with acute cholecystitis Priority: Primary Status: Acute Comments: choledocholithiasis with cholangitis; s/p ERCP with sphincterotomy and biliary stent placement for decompression; resolution of hyperbilirubinemia to near normal levels; expected continued decline. tolerating diet; okay for discharge today General Surgery Exam Initial Vital Signs Temp Pulse Resp BP Pulse Ox 99 F 78 18 128/81 98 08/29/17 18:23 08/29/17 18:23 08/29/17 18:23 08/29/17 18:23 08/29/17 18:23 - General physical appearance well developed, no distress - Eyes other (no scleral icterus) - Respiratory normal expansion, normal respiratory effort - Cardiovascular Cardiovascular exam: Present: RRR - Abdomen Abdomen general surgery: Present: soft, tender (minimally tender on exam) - Integumentary Integumentary general surgery: Present: warm and dry, no abnormal pigmentation - Neurologic Present: CN 2-12 grossly intact - Musculoskeletal Present: normal posture - Psychiatric Psychiatric general surgery: Present: A&Ox3 - Hospital Course Hospital course: Ms. Herrera is a 46 year old female - Time Spent with Patient Total time spent providing and/or coordinating discharge services: - Discharge Medications Prescriptions: Amoxicillin/Clavulanate [Augmentin] 875 mg PO BIDWM 11 Days #22 tablet Home Medications: Dicyclomine [Bentyl] 10 mg PO QID PRN #45 capsule 08/29/17 [Rx] Loratadine [Claritin] 10 mg PO DAILY 08/29/17 [History] Mag Hydrox/Al Hydrox/Simeth [Maalox] 15 ml PO Q6HR 08/29/17 [History] Multivit with Calcium,Iron,Min [One Daily Women's] 1 tab PO DAILY 08/29/17 [ History] Drasco-3S/Dha/Epa/Fish Oil [Fish Oil 1,000 mg Softgel] 1 cap PO DAILY 08/29/17 [ History] Ondansetron ODT [Zofran ODT] 4 mg SL Q8HR PRN #21 tab.rapdis 08/29/17 [Rx] Amoxicillin/Clavulanate [Augmentin] 875 mg PO BIDWM 11 Days #22 tablet 09/02/17 [Rx] Allergies/Adverse Reactions: 3 Allergy/AdvReac Type Severity Reaction Status Date / Time codeine AdvReac Hallucinati Verified 08/29/17 13:02 ng Date of admission: 08/29/17 19:36 Primary care physician: Luis Horn DO Consults: 08/29/17 19:44 Consult to Gastroenterology [CONS] Routine Consulting Provider: Chrisology Enedina Reason for Consult: ERCP Call Completed: Yes Discharging clinician: Adolfo Garg Anticipated date of discharge: 09/02/17 (can be discharged when she is ready) Labs on day of discharge: Labs from last 24 hours 09/02/17 09/02/17 03:36 03:36 WBC 4.3 RBC 3.75 L Hgb 11.7 Hct 34.5 L MCV 92.0 MCH 31.2 MCHC 33.9 RDW 12.3 Plt Count 176 MPV 10.2 Immature Gran % 0.2 Seg Neutrophils % 50.2 Lymphocytes % 34.8 Monocytes % 9.0 Eosinophils % 5.3 Basophils % 0.5 Neutrophils # 2.2 Lymphocytes # 1.5 Monocytes # 0.4 Eosinophils # 0.2 Basophils # 0.0 Sodium 139 Potassium 3.9 Chloride 109 H Carbon Dioxide 24 BUN 6 Creatinine 0.63 Est GFR ( Amer) > 60 Est GFR (Non-Af Amer) > 60 BUN/Creatinine Ratio 10 Glucose 103 Calculated Osmolality 286 Calcium 8.6 Total Bilirubin 2.2 H Direct Bilirubin 1.1 H Indirect Bilirubin 1.1 AST 54 H ALT 230 H Alkaline Phosphatase 168 H Serum Total Protein 5.7 L Albumin 3.4 L Globulin 2.3 L Albumin/Globulin Ratio 1.5 - Impressions ITS Impressions Cath/Invasive Procedure 08/30/17 00:00 IMPRESSION: Intraoperative fluoroscopy provided. Please refer to the procedure report for further details. D/ / Fredi Samayoa MD / Fredi Samayoa MD Interpreting Provider: Fredi Samayoa MD - Patient Status Disposition: Home, Self-Care Condition: Good Overall status at discharge: patient is progressing back to baseline - Discharge Instructions Follow Up With: Luis Horn DO [Primary Care Provider] - Adolfo Garg MD [Non-Partnered Physician] - 09/09/17 9:00 am - Diet and Activity Activity: increase activity as tolerated Diet: low fat, low cholesterol
== END 2017-09-02 10:23 | disposition home or self-care (01) | DRG 445 ==
LOC: 3ANU 18:20 → EMEROO 18:20 → 3ANU 19:48
PROVIDERS: ADMIT Surgery; ATTEND Surgery